=== PATIENT | female | born 1980 | race Caucasian/White ===

== ENCOUNTER 2017-07-13 18:04 | Emergency (ER) | payer OTHER, SELFPAY ==
[2017-07-13 18:04] VITALS: BP 131/75; PULSE 79; RESP 20; TEMP 36.8; O2SAT 99; BMI 31.1
[2017-07-13 18:05] VITALS: BMI 31.3
--- NOTE | 2017-07-13 18:07 | XR_ITS ---
XR chest 2V HISTORY: ITS.REASON: chest pain ORDERING PHYSICIAN: Pro Hollins MD PATIENT AGE: 37 years COMPARISON: 01/19/2017 FINDINGS: The cardiomediastinal silhouette and pulmonary vascularity are within normal limits. The lungs are clear without infiltrates, suspicious nodules, or pleural effusions. No acute bony abnormalities. IMPRESSION: Negative chest, no acute finding
[2017-07-13 18:27] LABS: Basophils % 0.4 % (0.1-2.0); Eosinophils # 0.2 K/mm3 (0.0-0.4); Eosinophils % 1.7 % (0.1-12.0); Hematocrit 39.9 % (37.0-47.0); Lymphocytes # 2.5 K/mm3 (0.7-4.5); Lymphocytes % 27.1 K/mm3 (10-50); Mean Corpuscular HGB Conc 32.7 g/dL (31.8-35.4); Mean Corpuscular Hemoglobin 29.9 pg (27.0-31.2); Mean Corpuscular Volume 91.5 fl (81-99); Mean Platelet Volume 7.8 fl (7.4-10.4); Monocytes # 0.4 K/mm3 (0.1-1.0); Monocytes % 4.6 % (1.7-9.3); Neutrophils # 6.2 K/mm3 (1.8-7.8); Neutrophils % 66.2 % (37.0-80.0); Platelet Count 283 K/mm3 (142-424); Red Blood Count 4.36 M/mm3 (4.20-5.40); Red Cell Distribution Width 12.8 % (11.5-17.5); White Blood Count 9.4 K/mm3 (4.8-10.8)
[2017-07-13 19:04] LABS: Alanine Aminotransferase 35 U/L (12-78); Albumin Level 3.7 gm/dL (3.4-5.0); Albumin/Globulin Ratio 1.1 (1.1-1.8); Alkaline Phosphatase 88 U/L (46-116); Anion Gap 9.7 mEq/L (5-15); Bilirubin,Total 0.1 mg/dL (0.2-1.0); Blood Urea Nitrogen 17 mg/dL (7-18); Calcium 9.1 mg/dL (8.5-10.1); Carbon Dioxide 31 mmol/L (21.0-32.0); Chloride 101 mmol/L (98-107); Creatine Kinase 90 U/L (26-192); Creatinine Clearance Estimated 177 mL/min (0-300); Creatinine,Serum 0.64 mg/dL (0.55-1.02); Estimated Glomerular Filt Rate 104 ml/min (>60); GFR (African American) 126 ML/MIN (>60); Globulin 3.4 gm/dl (1.3-3.2); Glucose 94 mg/dL (74-106); Sodium 138 mmol/L (136-145); Total Protein,Serum 7.1 gm/dL (6.4-8.2); Troponin I < 0.02 ng/ml (0.00-0.06)
[2017-07-13 19:05] LABS: Aspartate Amino Transferase 17 U/L (15-37); CKMB Relative Index 0.6 U/L (0-4.0); Creatine Kinase MB < 0.5 mg/ml (0.0-3.6)
[2017-07-13 19:06] LABS: Potassium 3.7 mmoL/L (3.5-5.1)
[2017-07-13 20:17] VITALS: BP 107/66; PULSE 91; RESP 18; TEMP 36.6; O2SAT 97
== END 2017-07-13 20:20 | disposition left against medical advice (07) ==
PROVIDERS: Emergency Provider Emergency Medicine
DX: R07.9 Chest pain, unspecified (principal); I10 Essential (primary) hypertension; R06.09 Other forms of dyspnea
CPT/HCPCS: 71046; 80053; 82550; 82553; 84484; 85025; 93005; 93041; 99283

== ENCOUNTER → 2017-08-16 12:49 | Outpatient (CLI) | payer OTHER, SELFPAY ==
[2017-08-16 13:19] LABS: Basophils % 0.3 % (0.1-2.0); Eosinophils # 0.1 K/mm3 (0.0-0.4); Eosinophils % 0.7 % (0.1-12.0); Hematocrit 40.6 % (37.0-47.0); Hemoglobin 13.2 g/dL (12.2-16.2); Lymphocytes # 2.2 K/mm3 (0.7-4.5); Lymphocytes % 20.3 K/mm3 (10-50); Mean Corpuscular HGB Conc 32.4 g/dL (31.8-35.4); Mean Corpuscular Hemoglobin 29.6 pg (27.0-31.2); Mean Corpuscular Volume 91.4 fl (81-99); Mean Platelet Volume 7.7 fl (7.4-10.4); Monocytes # 0.4 K/mm3 (0.1-1.0); Monocytes % 3.6 % (1.7-9.3); Neutrophils # 8.1 K/mm3 (1.8-7.8); Neutrophils % 75.2 % (37.0-80.0); Platelet Count 267 K/mm3 (142-424); Red Blood Count 4.44 M/mm3 (4.20-5.40); Red Cell Distribution Width 12.7 % (11.5-17.5); White Blood Count 10.7 K/mm3 (4.8-10.8)
[2017-08-16 13:48] LABS: Alanine Aminotransferase 34 U/L (12-78); Albumin/Globulin Ratio 1.1 (1.1-1.8); Alkaline Phosphatase 86 U/L (46-116); Anion Gap 11.6 mEq/L (5-15); Aspartate Amino Transferase 20 U/L (15-37); Bilirubin,Total 0.3 mg/dL (0.2-1.0); Blood Urea Nitrogen 15 mg/dL (7-18); Calcium 8.9 mg/dL (8.5-10.1); Carbon Dioxide 26 mmol/L (21.0-32.0); Chloride 103 mmol/L (98-107); Creatinine,Serum 0.55 mg/dL (0.55-1.02); Estimated Glomerular Filt Rate 124 ml/min (>60); Free T4 (Free Thyroxine) 1.12 ng/dl (0.76-1.46); GFR (African American) 150 ML/MIN (>60); Globulin 3.5 gm/dl (1.3-3.2); Glucose 95 mg/dL (74-106); Potassium 3.6 mmoL/L (3.5-5.1); Sodium 137 mmol/L (136-145); Thyroid Stimulating Hormone 1.96 uIU/ml (0.358-3.740); Total Protein,Serum 7.5 gm/dL (6.4-8.2)
[2017-08-16 14:18] LABS: Hemoglobin A1C 5.6 % (0.0-7.0)
[2017-08-20 23:26] LABS: 1,25-Dihydroxy, Vitamin D-2 50 pg/mL (.)
[2017-08-23 15:36] LABS: 1,25 Dihydroxy Vitamin D 58 pg/mL (.); 1,25-Dihydroxy, Vitamin D-3 <10 pg/mL (.)
== END ==
PROVIDERS: Nurse Practitioner Family; Visit Provider Emergency Medicine
DX: R53.83 Other fatigue (principal)
CPT/HCPCS: 36415; 80053; 82652; 83036; 84439; 84443; 85025

== ENCOUNTER → 2017-09-02 13:44 | Outpatient (CLI) | payer OTHER, SELFPAY | PROVIDERS: Visit Provider Nurse Practitioner Family | DX: R52 Pain, unspecified (principal); R10.9 Unspecified abdominal pain | CPT/HCPCS: 87086 ==

== ENCOUNTER → 2017-09-05 10:53 | Outpatient (REF) | payer OTHER, SELFPAY | LOC: LAB 10:53 | PROVIDERS: Visit Provider Nurse Practitioner Family | DX: M54.9 Dorsalgia, unspecified (principal) | CPT/HCPCS: 87086 ==

== ENCOUNTER → 2017-09-22 10:30 | Outpatient (CLI) | payer OTHER, SELFPAY ==
--- NOTE | 2017-09-22 10:32 | CT_ITS ---
CT abdomen pelvis wo con CLINICAL INDICATION: Bilateral flank pain right greater than left ITS.REASON: pain ORDERING PHYSICIAN: Moriah Graham PATIENT AGE: 37 years COMPARISON: 06/25/2016 TECHNIQUE: Axial images obtained with sagittal and coronal reformats. All CT scans at the facility use one or more dose reduction, viz: automated exposure control; ma/kV adjustment per patient size (including targeted exams where dose is matched to indication; i.e. head); or iterative reconstruction technique. PROCEDURE: Oral Contrast: None IV Contrast: None . FINDINGS: Lung bases are clear. The liver, gallbladder, spleen, adrenal glands, pancreas, and stomach have an unremarkable unenhanced CT appearance. There is a tiny hyperdensity along the cortex of the right kidney posteriorly at 3 mm and may represent a small hyperdense cyst. A 2 mm cortical medullary calcification is present in the lower pole the left kidney. No obstructing renal or ureteral calculi. No hydronephrosis. There is history given of prior appendectomy. No intestinal obstruction, free air, or diverticulitis. Scattered small nodes in the mesentery's nonspecific. No pelvic mass abnormal fluid collection or focal inflammatory change. No acute bony anomalies. IMPRESSION: 1. No acute finding. No obstructing renal or ureteral calculi. 2. Nonspecific 3 mm cortical hyperdensity of the right kidney posteriorly and 2 mm cortical medullary hyperdensity of the left kidney inferiorly not significant changed
[2017-09-23 08:29] LABS: Vitamin B12 518 pg/mL (232-1245)
[2017-09-23 10:19] LABS: Ceruloplasmin 35.6 mg/dL (19.0-39.0); Folate 17.5 ng/mL (>3.0)
== END ==
PROVIDERS: Specialist; PCP Nurse Practitioner Family; Visit Provider Nurse Practitioner Family
DX: G24.5 Blepharospasm (principal); G25.9 Extrapyramidal and movement disorder, unspecified
CPT/HCPCS: 36415; 74176; 82390; 82607; 82746

== ENCOUNTER → 2017-10-01 10:04 | Outpatient (CLI) | payer OTHER, SELFPAY ==
[2017-10-01 10:35] LABS: Collection Time,Urine 24 hours; Total Volume,Urine 1850 mL (600-1600)
[2017-10-01 10:43] LABS: Creatinine 24 Hour,Urine 1517 mg/24hr (630-2500); Creatinine,Urine Random 82 mg/dL (20-320)
== END ==
PROVIDERS: Visit Provider Nurse Practitioner Family
DX: R10.9 Unspecified abdominal pain (principal)
CPT/HCPCS: 82570

== ENCOUNTER → 2017-12-19 10:41 | Outpatient (REF) | payer OTHER, SELFPAY ==
[2017-12-19 18:25] LABS: Hemoglobin A1C 5.7 % (0.0-7.0)
[2017-12-19 18:37] LABS: Basophils % 0.4 % (0.1-2.0); Eosinophils # 0.1 K/mm3 (0.0-0.4); Eosinophils % 0.8 % (0.1-12.0); Hematocrit 47.3 % (37.0-47.0); Hemoglobin 14.9 g/dL (12.2-16.2); Lymphocytes # 1.8 K/mm3 (0.7-4.5); Lymphocytes % 24.5 K/mm3 (10-50); Mean Corpuscular HGB Conc 31.5 g/dL (31.8-35.4); Mean Corpuscular Hemoglobin 29.7 pg (27.0-31.2); Mean Corpuscular Volume 94.2 fl (81-99); Mean Platelet Volume 8.6 fl (7.4-10.4); Monocytes # 0.4 K/mm3 (0.1-1.0); Neutrophils # 5.1 K/mm3 (1.8-7.8); Neutrophils % 69.3 % (37.0-80.0); Platelet Count 306 K/mm3 (142-424); Red Blood Count 5.03 M/mm3 (4.20-5.40); Red Cell Distribution Width 14.1 % (11.5-17.5); White Blood Count 7.4 K/mm3 (4.8-10.8)
[2017-12-19 19:06] LABS: Alanine Aminotransferase 34 U/L (12-78); Albumin Level 4.4 gm/dL (3.4-5.0); Albumin/Globulin Ratio 1.4 (1.1-1.8); Alkaline Phosphatase 77 U/L (46-116); Anion Gap 12.3 mEq/L (5-15); Aspartate Amino Transferase 15 U/L (15-37); Bilirubin,Total 0.2 mg/dL (0.2-1.0); Blood Urea Nitrogen 14 mg/dL (7-18); Calcium 9.6 mg/dL (8.5-10.1); Carbon Dioxide 30 mmol/L (21.0-32.0); Chloride 102 mmol/L (98-107); Chol/HDL Ratio 4.5 (1-3.5); Cholesterol 236 mg/dL (140-200); Creatinine,Serum 0.63 mg/dL (0.55-1.02); Estimated Glomerular Filt Rate 106 ml/min (>60); GFR (African American) 129 ML/MIN (>60); Globulin 3.2 gm/dl (1.3-3.2); Glucose 105 mg/dL (74-106); HDL Cholesterol 52 mg/dL (29-89); LDL Cholesterol 160 mg/dL (0-130); Potassium 4.3 mmoL/L (3.5-5.1); Sodium 140 mmol/L (136-145); Thyroid Stimulating Hormone 1.99 uIU/ml (0.358-3.740); Total Protein,Serum 7.6 gm/dL (6.4-8.2); Triglycerides 122 mg/dL (30-200); VLDL Cholesterol 24 mg/dL (0-40)
[2017-12-21 17:12] LABS: Vitamin D 25 Hydroxy 22.7 ng/mL (30.0-100.0)
== END ==
LOC: LAB 10:41
PROVIDERS: Visit Provider Nurse Practitioner Family
DX: I10 Essential (primary) hypertension (principal)
CPT/HCPCS: 80053; 80061; 82652; 83036; 84436; 84443; 85025

== ENCOUNTER → 2018-02-07 15:15 | Outpatient (CLI) | payer OTHER, SELFPAY ==
--- NOTE | 2018-02-07 15:19 | NVE_ITS ---
Venous Exam Indications: 729.5 Pain in limb. IMPRESSIONS No evidence of deep or superficial vein thrombosis involving the veins of the left upper extremity Left upper extremity venous duplex. Doppler flow study including spectral analysis, color and serra scale imaging. Patient status: Outpatient. Tables: Venous flow and imaging: + + + Location Flow properties + + + Left internal jugular Normal phasicity; spontaneous; compressible + + + Left subclavian Normal phasicity; spontaneous; normal augmentation; compressible + + + Left axillary Normal phasicity; spontaneous; normal augmentation; compressible + + + Left brachial Normal phasicity; spontaneous; normal augmentation; compressible + + + Left cephalic Normal phasicity; spontaneous; normal augmentation; compressible + + + Left basilic Normal phasicity ; spontaneous; normal augmentation; compressible + + + Left radial Compressible + + + Left ulnar Compressible + + + (Report amended ) Electronically signed by: Jaylen Cook [id number]
== END ==
PROVIDERS: PCP Physician Assistant; Visit Provider Physician Assistant
DX: M79.602 Pain in left arm (principal)
CPT/HCPCS: 93971

== ENCOUNTER → 2019-01-04 14:11 | Outpatient (CLI) | payer OTHER, SELFPAY ==
[2019-01-04 14:37] LABS: Basophils % 0.3 % (0.1-2.0); Eosinophils # 0.1 K/mm3 (0.0-0.4); Eosinophils % 0.9 % (0.1-12.0); Lymphocytes # 1.7 K/mm3 (0.7-4.5); Lymphocytes % 28.4 % (10-50); Mean Corpuscular Hemoglobin 30.1 pg (27.0-31.2); Mean Corpuscular Volume 94.1 fl (81-99); Mean Platelet Volume 8.2 fl (7.4-10.4); Monocytes # 0.3 K/mm3 (0.1-1.0); Monocytes % 4.7 % (1.7-9.3); Neutrophils % 65.9 % (37.0-80.0); Platelet Count 245 K/mm3 (142-424); Red Blood Count 4.99 M/mm3 (4.20-5.40); White Blood Count 6.1 K/mm3 (4.8-10.8)
[2019-01-04 15:09] LABS: Alanine Aminotransferase 26 U/L (12-78); Albumin Level 3.9 gm/dL (3.4-5.0); Albumin/Globulin Ratio 1.2 (1.1-1.8); Alkaline Phosphatase 72 U/L (46-116); Anion Gap 15.2 mEq/L (5-15); Aspartate Amino Transferase 12 U/L (15-37); Bilirubin,Total 0.3 mg/dL (0.2-1.0); Blood Urea Nitrogen 13 mg/dL (7-18); Calcium 8.8 mg/dL (8.5-10.1); Carbon Dioxide 25 mmol/L (21.0-32.0); Chloride 102 mmol/L (98-107); Chol/HDL Ratio 5.9 (1-3.5); Cholesterol 214 mg/dL (140-200); Creatinine,Serum 0.74 mg/dL (0.55-1.02); Estimated Glomerular Filt Rate 88 ml/min (>60); GFR (African American) 106 ML/MIN (>60); Globulin 3.2 gm/dl (1.3-3.2); Glucose 105 mg/dL (74-106); HDL Cholesterol 36 mg/dL (29-89); LDL Cholesterol 124 mg/dL (0-130); Potassium 4.2 mmoL/L (3.5-5.1); Sodium 138 mmol/L (136-145); T4 (Thyroxine) 10.1 ug/dl (4.7-13.3); Thyroid Stimulating Hormone 2.25 uIU/ml (0.358-3.740); Total Protein,Serum 7.1 gm/dL (6.4-8.2); Triglycerides 272 mg/dL (30-200); VLDL Cholesterol 54 mg/dL (0-40)
[2019-01-07 16:29] LABS: Vitamin D 25 Hydroxy 23.6 ng/mL (30.0-100.0)
== END ==
PROVIDERS: Visit Provider Nurse Practitioner Family
DX: Z00.00 Encounter for general adult medical examination without abnormal findings (principal); Z87.891 Personal history of nicotine dependence; E55.9 Vitamin D deficiency, unspecified
CPT/HCPCS: 80053; 80061; 82652; 84436; 84443; 85025

== ENCOUNTER 2019-09-04 18:21 | Emergency (ER) | payer OTHER, SELFPAY ==
[2019-09-04 18:22] VITALS: BP 133/87; PULSE 104; RESP 20; TEMP 36.9; O2SAT 100; BMI 28.8
--- NOTE | 2019-09-04 18:40 | XR_ITS ---
PROCEDURE: XR CHEST 2V CLINICAL HISTORY: SOA Shortness of air, smoker COMPARISON: CXR CHEST(2 VIEWS-NOT PORTABLE) from 01/13/2017 CXR CHEST(2 VIEWS-NOT PORTABLE) from 01/19/2017 CXR2V XR chest 2V from 07/13/2017 FINDINGS: The cardiomediastinal silhouette and pulmonary vascularity are within normal limits. The lungs are clear without infiltrates, suspicious nodules, or pleural effusions. No acute bony abnormalities. IMPRESSION: No acute findings. Dictated by: Jaylen Cook MD 09/05/2019 17:52 Electronically signed by Jaylen Cook MD in [facility] 09/05/2019 17:52
[2019-09-04 18:48] LABS: Chloride 103 mmol/L (98-107); Sodium 138 mmol/L (136-145)
[2019-09-04 18:49] LABS: Potassium 3.7 mmoL/L (3.5-5.1)
[2019-09-04 18:51] LABS: Alanine Aminotransferase 17 U/L (12-78); Albumin/Globulin Ratio 1.6 (1.1-1.8); Alkaline Phosphatase 62 U/L (38-126); Anion Gap 12.7 mEq/L (5-15); Aspartate Amino Transferase 24 U/L (14-36); Bilirubin,Total 0.4 mg/dl (0.2-1.3); Blood Urea Nitrogen 11 mg/dl (7-17); Carbon Dioxide 26 mmol/L (22.0-30.0); Creatinine Clearance Estimated 147 mL/min (50-200); Estimated Glomerular Filt Rate 93 ml/min (>60); GFR (African American) 113 ML/MIN (>60); Globulin 3.1 g/dL (1.3-3.2); Total Protein,Serum 8.1 g/dl (6.3-8.2)
[2019-09-04 18:52] LABS: Calcium 9.7 mg/dl (8.4-10.2); Glucose 97 mg/dl (74-100)
[2019-09-04 18:53] LABS: Basophils % 0.5 % (0.1-2.0); Eosinophils # 0.1 K/mm3 (0.0-0.4); Eosinophils % 0.7 % (0.1-12.0); Hematocrit 45.7 % (37.0-47.0); Hemoglobin 14.8 g/dL (12.2-16.2); Lactic Acid 0.9 mmol/L (0.7-2.1); Lymphocytes # 2.3 K/mm3 (0.7-4.5); Lymphocytes % 28.2 % (10-50); Mean Corpuscular HGB Conc 32.4 g/dL (31.8-35.4); Mean Corpuscular Hemoglobin 30.1 pg (27.0-31.2); Mean Corpuscular Volume 92.9 fl (81-99); Mean Platelet Volume 7.7 fl (7.4-10.4); Monocytes # 0.3 K/mm3 (0.1-1.0); Monocytes % 4.2 % (1.7-9.3); Neutrophils # 5.4 K/mm3 (1.8-7.8); Neutrophils % 66.4 % (37.0-80.0); Platelet Count 269 K/mm3 (142-424); Red Blood Count 4.92 M/mm3 (4.20-5.40); Red Cell Distribution Width 12.7 % (11.5-17.5); White Blood Count 8.1 K/mm3 (4.8-10.8)
[2019-09-04 19:01] LABS: Microscopic, Urine URINE MICROSCOPIC (MICROSCOPIC)
[2019-09-04 19:02] LABS: Appearance,Urine CLEAR (Clear); Bilirubin,Urine Negative (Negative); Blood, Urine 1+ (Negative); Color,Urine YELLOW (Yellow); Glucose,Urine (UA) Negative (Negative); Ketones,Urine 1+ (Negative); Leukocyte Esterase,Urine TRACE (Negative); Nitrate,Urine Negative (Negative); Protein,Urine Negative (Negative); Urobilinogen,Urine 0.2 EU/dl (0.2)
[2019-09-04 19:08] LABS: Strep Scrn Group A (Rapid) Negative (Negative)
--- NOTE | 2019-09-04 19:15 | HMH.EDGENADL ---
ED Disposition Condition on Discharge: Good - Critical Care Critical Care Time: No <FestusteddyPro - Last Filed: 09/04/19 20:27> <Chai Hurst - Last Filed: 09/04/19 20:40> Clinical Impression: Chest pain, precordial, Shortness of breath, Anxiety Disposition: Home, Self-Care Instructions: DI for Shortness of Breath Additional Instructions: call pcp in am Referrals: Provider,Referral, MD [Primary Care Provider] - Attestation: On 09/04/19, the high probability of a clinically significant, sudden or life threatening deterioration of the following system(s) required my full and direct attention, intervention and personal management. The time I documented below is in addition to time spent performing reported procedures but includes the following listed in this critical care notation. Medical Decision Making - Shayne Inquiry Pt receiving controlled substance: No - Lab Data Result diagrams: 09/04/19 18:25 09/04/19 18:25 <GunjanPro - Last Filed: 09/04/19 20:27> - Lab Data Result diagrams: 09/04/19 18:25 09/04/19 18:25 <Chai Hurst - Last Filed: 09/04/19 20:40> Vital Signs: 09/04/19 18:22 Temperature 98.4 F Temperature Source Oral Pulse Rate [Right Radial] 104 H Respiratory Rate 20 Blood Pressure [Right Arm] 133/87 Blood Pressure Mean [Right Arm] 102 Blood Pressure Source [Right Arm] Automatic Cuff Blood Pressure Position [Right Arm] Sitting 02 Sat by Pulse Oximetry 100 Oxygen Delivery Method Room Air - Lab Data Lab Results 09/04/19 18:25: Lactate 0.9 09/04/19 18:25: WBC 8.1, RBC 4.92, Hgb 14.8, Hct 45.7, MCV 92.9, MCH 30.1, MCHC 32.4, RDW 12.7, Plt Count 269, MPV 7.7, Neut % (Auto) 66.4, Lymph % (Auto) 28.2, Burt % (Auto) 4.2, Eos % (Auto) 0.7, Baso % (Auto) 0.5, Neut # (Auto) 5.4, Lymph # (Auto) 2.3, Burt # (Auto) 0.3, Eos # (Auto) 0.1, Baso # (Auto) 0.0 09/04/19 18:25: Sodium 138, Potassium 3.7, Chloride 103, Carbon Dioxide 26, Anion Gap 12.7, BUN 11, Creatinine 0.70, Estimated Creat Clear 147, Estimated GFR 93, Est GFR ( Amer) 113, Glucose 97, Calcium 9.7, Total Bilirubin 0.4, AST 24, ALT 17, Alkaline Phosphatase 62, Total Protein 8.1, Albumin 5.0, Globulin 3.1, Albumin/Globulin Ratio 1.6 09/04/19 18:25: Influenza Type A Ag Negative, Influenza Type B Ag Negative 09/04/19 18:25: Group A Strep Rapid Negative 09/04/19 18:25: D-Dimer < 100 09/04/19 18:25: Troponin I < 0.01 09/04/19 18:55: Urine Color Yellow, Urine Appearance Clear, Urine pH 7.0, Ur Specific [place] 1.010, Urine Protein Negative, Urine Glucose (UA) Negative, Urine Ketones 1+, Urine Blood 1+, Urine Nitrate Negative, Urine Bilirubin Negative, Urine Urobilinogen 0.2, Ur Leukocyte Esterase Trace, Urine WBC Occasional, Ur Squamous Epith Cells Occasional, Urine Bacteria Trace Orders (Tests/Meds): ED MEDICATIONS Generic Name Dose Route Start Last Admin Trade Name Fregarland PRN Reason Stop Dose Admin Sodium Chloride 10 ml 09/04/19 20:30 Sodium Chloride 0.9% 10ml Vial IV 10/04/19 20:29 NEEDED PRN to Dilute Lorazepam inj Discontinued Medications Generic Name Dose Route Start Last Admin Trade Name Jesika PRN Reason Stop Dose Admin Ketorolac Tromethamine 30 mg 09/04/19 20:30 09/04/19 20:31 Toradol 30mg/Ml Vial IV 09/04/19 20:31 30 mg ONCE ONE Administration Lorazepam 1 mg 09/04/19 20:30 09/04/19 20:31 Ativan 2mg/Ml Vial IV 09/04/19 20:31 1 mg ONCE ONE Administration Methylprednisolone Sodium Succinate 125 mg 09/04/19 20:30 09/04/19 20:31 Solu-Medrol 125mg/2ml Vial IV 09/04/19 20:31 125 mg ONCE ONE Administration ORDERS Category Date Time Status XR chest 2V Stat Exams 09/04/19 18:40 Taken Troponin I Q3H Lab 09/04/19 22:30 Ordered Troponin I Q3H Lab 09/05/19 01:30 Ordered Blood Culture Stat Micro 09/04/19 18:25 Received Strep Screen Confirmation Stat Micro 09/04/19 18:25 Received - ECG Data Tracing #1 EKG interpreted by
[2019-09-04 19:36] LABS: Bacteria,Urine Trace /lpf; Squamous Epithelial Cell,Urine Occasional #/hpf (0-5); WBC,Urine Occasional #/hpf (0-3)
--- NOTE | 2019-09-04 19:41 | ECG_ITS ---
APPROVED REPORT Exam: Resting ECG HR:88 bpm ECG Measurements Heart Rate 88 AXES WI 136 P 27 QRSd 78 QRS 14 QT 360 T 0 QTc 435 <Conclusion> Normal sinus rhythm Moderate voltage criteria for LVH, may be normal variant Borderline ECG Electronically signed by : Galo Nunez, 09/07/2019 08:07:53
--- NOTE | 2019-09-04 19:50 | PC.NURSE ---
EKG obtained per MD order. No needs voiced at this time.
[2019-09-04 20:05] LABS: Troponin I < 0.01 ng/ml (0.00-0.034)
[2019-09-04 20:24] LABS: D-Dimer < 100 ng/mL (0-400)
[2019-09-04 20:47] VITALS: BP 140/72; PULSE 81; RESP 19; TEMP 36.7; O2SAT 98
== END 2019-09-04 21:34 | disposition home or self-care (01) ==
PROVIDERS: Emergency Provider Emergency Medicine; PCP Emergency Medicine
DX: R07.9 Chest pain, unspecified (principal); F41.9 Anxiety disorder, unspecified; F17.210 Nicotine dependence, cigarettes, uncomplicated; Z88.1 Allergy status to other antibiotic agents
CPT/HCPCS: 71046; 80053; 81001; 83605; 84484; 85025; 85378; 87040; 87275; 87276; 87430; 93005; 96374; 96375; 99284

== ENCOUNTER 2019-11-11 20:26 | Emergency (ER) | payer OTHER, SELFPAY ==
[2019-11-11 20:41] VITALS: BP 134/90; PULSE 111; RESP 17; TEMP 36.9; O2SAT 100; BMI 24.6
--- NOTE | 2019-11-11 20:41 | PC.NURSE ---
lead housekeeper at the bedside starting av IV
--- NOTE | 2019-11-11 20:47 | CT_ITS ---
PROCEDURE: CT HEAD/BRAIN WO CON CLINICAL INDICATION: left side altered sensation COMPARISON: HDWO CT HEAD W/O CONTRAST from 09/03/2016 TECHNIQUE: Axial images obtained. All CT scans at the facility use one or more dose reduction, viz: automated exposure control, ma/kV adjustment per patient size (including targeted exams where dose is matched to indication, i.e. head), or iterative reconstruction technique. FINDINGS: No midline shift, mass effect, intracranial hemorrhage, hydrocephalus, or extra-axial fluid collection is evident. The calvarium has an unremarkable appearance. No mastoid effusion. No sinus air-fluid level. IMPRESSION: No acute intracranial finding Dictated by: Dr. Dipesh Gutierrez MD 11/12/2019 07:[address] Dipesh Gutierrez MD in [place] 11/12/2019 07:24
--- NOTE | 2019-11-11 20:47 | XR_ITS ---
PROCEDURE: XR CHEST 2V CLINICAL HISTORY: left arm pain, r/o mi COMPARISON: CXR CHEST(2 VIEWS-NOT PORTABLE) from 01/19/2017 CXR2V XR chest 2V from 07/13/2017 XR CHEST 2V from 09/04/2019 FINDINGS: The cardiomediastinal silhouette and pulmonary vascularity are within normal limits. The lungs are clear without infiltrates, suspicious nodules, or pleural effusions. No acute bony abnormalities. IMPRESSION: No acute findings. Dictated by: Dr. Dipesh Gutierrez MD 11/12/2019 07:[address] Dipesh Gutierrez MD in [facility] 11/12/2019 07:27
--- NOTE | 2019-11-11 20:47 | ECG_ITS ---
APPROVED REPORT Exam: Resting ECG HR:88 bpm ECG Measurements Heart Rate 88 AXES [place] 144 P 56 QRSd 82 QRS 50 QT 376 T 27 QTc 454 <Conclusion> Normal sinus rhythm Nonspecific ST and T wave abnormality Abnormal ECG Electronically signed by : Galo Nunez, 11/12/2019 17:27:35
--- NOTE | 2019-11-11 20:57 | HMH.EDCP ---
ED Disposition Clinical Impression: Atypical chest pain Disposition: Home, Self-Care Condition on Discharge: Good Instructions: DI for Atypical Chest Pain Additional Instructions: see pcp in am Referrals: Provider,Referral, [Primary Care Provider] - - Critical Care Critical Care Time: No Attestation: On 11/11/19, the high probability of a clinically significant, sudden or life threatening deterioration of the following system(s) required my full and direct attention, intervention and personal management. The time I documented below is in addition to time spent performing reported procedures but includes the following listed in this critical care notation. Medical Decision Making - Medical Records Medical records reviewed: Yes: I reviewed the patient's medical records. - Shayne Inquiry Pt receiving controlled substance: No Vital Signs: 11/11/19 20:41 11/11/19 21:05 11/11/19 23:00 Temperature 98.5 F Temperature Source Oral Pulse Rate Pulse Rate [Right Brachial] 111 H 94 H 100 H Respiratory Rate 17 18 20 Blood Pressure Blood Pressure [Right Arm] 134/90 148/89 H 112/73 Blood Pressure Mean [Right Arm] 104 108 86 Blood Pressure Source Blood Pressure Source [Right Arm] Automatic Cuff Automatic Cuff Blood Pressure Position Blood Pressure Position [Right Arm] Sitting Supine 02 Sat by Pulse Oximetry 100 100 100 Oxygen Delivery Method Room Air Room Air Room Air 11/11/19 23:31 11/11/19 23:33 Temperature 98.0 F Temperature Source Oral Pulse Rate 107 H Pulse Rate [Right Brachial] 108 H Respiratory Rate 18 18 Blood Pressure 120/90 Blood Pressure [Right Arm] 120/90 Blood Pressure Mean [Right Arm] 100 Blood Pressure Source Automatic Cuff Blood Pressure Source [Right Arm] Blood Pressure Position Standing Blood Pressure Position [Right Arm] 02 Sat by Pulse Oximetry 99 Oxygen Delivery Method Room Air Room Air - Lab Data Lab results reviewed: Yes: I reviewed the patient's lab results. Lab Results 11/11/19 20:50: WBC 6.9, RBC 4.92, Hgb 15.2, Hct 45.0, MCV 91.4, MCH 31.0, MCHC 33.8, RDW 12.9, Plt Count 238, MPV 8.1, Neut % (Auto) 55.5, Lymph % (Auto) 37.6, [place] % (Auto) 4.5, Eos % (Auto) 1.7, Baso % (Auto) 0.6, Neut # (Auto) 3.8, Lymph # (Auto) 2.6, [place] # (Auto) 0.3, Eos # (Auto) 0.1, Baso # (Auto) 0.0 11/11/19 20:50: D-Dimer < 100 11/11/19 20:50: Sodium 139, Potassium 3.0 L, Chloride 102, Carbon Dioxide 29, Anion Gap 11.0, BUN 16, Creatinine 0.80, Estimated Creat Clear 110, Estimated GFR 80, Est GFR ( Amer) 97, Glucose 106 H, Calcium 9.4, Total Bilirubin 0.3, Direct Bilirubin 0.3, Conjugated Bilirubin 0.0, Indirect Bilirubin 0.0, Unconjugated Bilirubin 0.0, AST 31, ALT 27, Alkaline Phosphatase 71, Troponin I < 0.01, NT-Pro-B Natriuret Pep 61.6, Total Protein 7.3, Albumin 4.6 11/11/19 20:50: TSH 2.32, Free T4 Index 4.0 L, Thyroxine (T4) 12.2 H, T3 Uptake 33 11/11/19 20:50: Serum HCG, Qual Negative Result diagrams: 11/11/19 20:50 11/11/19 20:50 Orders (Tests/Meds): ORDERS Category Date Time Status CT head/brain wo con Stat Cat Scan 11/11/19 20:47 Taken XR chest 2V Stat Exams 11/11/19 20:47 Taken Troponin I Q3H Lab 11/12/19 02:48 Ordered Urinalysis and Microscopic Stat Lab 11/11/19 20:49 Ordered - Radiology Data #1 Image(s): Chest Image Reviewed: Yes I reviewed the patient's radiology image Preliminary Findings: Normal/NAD - CT Data CT Scan: Head Time Received: 23:56 Preliminary Findings: Normal/NAD - ECG Data Tracing #1 Normal Sinus Rhythm: Yes Ischemic changes: non-specific ST-T wave changes Chest Pain HPI - General Chief Complaint: Chest Pain Stated Complaint: Left arm pain, not able to sleep Time Seen by Provider: 11/11/19 20:57 Mode of Arrival: Family Vehicle Source of Information: Patient, Medical Record Limitations: No Limitations Description of Symptoms (Recalled from ER Triage Doc. by RN): pt with current anxiety p
[2019-11-11 21:05] VITALS: BP 148/89; PULSE 94; RESP 18; O2SAT 100
[2019-11-11 21:07] LABS: Basophils % 0.6 % (0.1-2.0); Eosinophils # 0.1 K/mm3 (0.0-0.4); Eosinophils % 1.7 % (0.1-12.0); Hemoglobin 15.2 g/dL (12.2-16.2); Lymphocytes # 2.6 K/mm3 (0.7-4.5); Lymphocytes % 37.6 % (10-50); Mean Corpuscular HGB Conc 33.8 g/dL (31.8-35.4); Mean Corpuscular Volume 91.4 fl (81-99); Mean Platelet Volume 8.1 fl (7.4-10.4); Monocytes # 0.3 K/mm3 (0.1-1.0); Monocytes % 4.5 % (1.7-9.3); Neutrophils # 3.8 K/mm3 (1.8-7.8); Neutrophils % 55.5 % (37.0-80.0); Platelet Count 238 K/mm3 (142-424); Red Blood Count 4.92 M/mm3 (4.20-5.40); Red Cell Distribution Width 12.9 % (11.5-17.5); White Blood Count 6.9 K/mm3 (4.8-10.8)
[2019-11-11 21:08] LABS: Chloride 102 mmol/L (98-107); Sodium 139 mmol/L (136-145)
[2019-11-11 21:10] LABS: Blood Urea Nitrogen 16 mg/dl (7-17); Creatinine Clearance Estimated 110 mL/min (50-200); Estimated Glomerular Filt Rate 80 ml/min (>60); GFR (African American) 97 ML/MIN (>60)
[2019-11-11 21:11] LABS: Alanine Aminotransferase 27 U/L (12-78); Albumin Level 4.6 g/dl (3.5-5.0); Alkaline Phosphatase 71 U/L (38-126); Aspartate Amino Transferase 31 U/L (14-36); Bilirubin,Direct 0.3 mg/dl (0.0-0.4); Bilirubin,Total 0.3 mg/dl (0.2-1.3); Calcium 9.4 mg/dl (8.4-10.2); Carbon Dioxide 29 mmol/L (22.0-30.0); Glucose 106 mg/dl (74-100); Total Protein,Serum 7.3 g/dl (6.3-8.2)
[2019-11-11 21:20] LABS: HCG Qualitative, Serum Negative (Negative); NT Pro Brain Natriuretic Pep. 61.6 pg/mL (0-125)
[2019-11-11 21:23] LABS: D-Dimer < 100 ng/mL (0-400)
[2019-11-11 21:29] LABS: Triiodothryronine (T3) Uptake 33 % (23.5-40.5)
[2019-11-11 21:30] LABS: T4 (Thyroxine) 12.2 ug/dl (5.53-11.0); Troponin I < 0.01 ng/ml (0.00-0.034)
[2019-11-11 21:44] LABS: Thyroid Stimulating Hormone 2.32 uIU/mL (0.465-4.68)
[2019-11-11 23:00] VITALS: BP 112/73; PULSE 100; RESP 20; O2SAT 100
[2019-11-11 23:31] VITALS: BP 120/90; PULSE 107; RESP 18; TEMP 36.7; O2SAT 99
[2019-11-11 23:33] VITALS: BP 120/90; PULSE 108; RESP 18; O2SAT 99
== END 2019-11-12 00:06 | disposition home or self-care (01) ==
PROVIDERS: Emergency Provider Emergency Medicine
DX: R07.89 Other chest pain (principal); K21.9 Gastro-esophageal reflux disease without esophagitis; E78.5 Hyperlipidemia, unspecified; I10 Essential (primary) hypertension; F41.9 Anxiety disorder, unspecified; G43.709 Chronic migraine without aura, not intractable, without status migrainosus; Z87.442 Personal history of urinary calculi; Z90.49 Acquired absence of other specified parts of digestive tract; F17.210 Nicotine dependence, cigarettes, uncomplicated; Z79.899 Other long term (current) drug therapy
CPT/HCPCS: 70450; 71046; 80048; 80076; 83880; 84436; 84443; 84479; 84484; 84703; 85025; 85378; 93005; 99283; 99284

== ENCOUNTER → 2019-11-21 17:39 | Outpatient (CLI) | payer OTHER, SELFPAY ==
[2019-11-23 12:41] LABS: Vitamin B12 937 pg/mL (232-1245)
[2019-11-27 16:29] LABS: 1,25 Dihydroxy Vitamin D 68 pg/mL (.); 1,25-Dihydroxy, Vitamin D-2 41 pg/mL (.); 1,25-Dihydroxy, Vitamin D-3 27 pg/mL (.)
[2019-12-05 11:15] LABS: APTT 26.3 sec (.); Prothrombin Time 11.2 sec (.)
[2019-12-05 11:16] LABS: Anti-Cardiolipin Antibody IgG <10 GPL (.); Anti-Cardiolipin Antibody IgM 12 MPL (.); Beta-2 Glycoprotein I Ab, IgA <10 SAU (.); Beta-2 Glycoprotein I Ab, IgG <10 SGU (.); Beta-2 Glycoprotein I Ab, IgM <10 SMU (.); Hexagonal Phase Phospholipid 0 sec (.)
== END ==
PROVIDERS: Visit Provider Nurse Practitioner Family
DX: R20.0 Anesthesia of skin (principal); E67.3 Hypervitaminosis D
CPT/HCPCS: 36415; 82607; 82652; 85597; 85598; 85610; 85613; 85670; 85730; 86146; 86147

== ENCOUNTER → 2020-03-27 18:37 | Outpatient (CLI) | payer OTHER, SELFPAY ==
[2020-03-27 19:01] LABS: Alanine Aminotransferase 23 U/L (12-78); Albumin Level 4.9 g/dl (3.5-5.0); Albumin/Globulin Ratio 1.6 (1.1-1.8); Alkaline Phosphatase 80 U/L (38-126); Anion Gap 15.2 mEq/L (5-15); Aspartate Amino Transferase 26 U/L (14-36); Bilirubin,Total 0.5 mg/dl (0.2-1.3); Blood Urea Nitrogen 16 mg/dl (7-17); Calcium 10.4 mg/dl (8.4-10.2); Carbon Dioxide 29 mmol/L (22.0-30.0); Chloride 101 mmol/L (98-107); Cholesterol 253 mg/dl (140-200); Estimated Glomerular Filt Rate 93 ml/min (>60); GFR (African American) 113 ML/MIN (>60); Glucose 92 mg/dl (74-100); HDL Cholesterol 64 mg/dl (40-60); Potassium 4.2 mmoL/L (3.5-5.1); Sodium 141 mmol/L (136-145); Total Protein,Serum 7.9 g/dl (6.3-8.2); Triglycerides 124 mg/dl (30-150); VLDL Cholesterol 25 mg/dL (0-40)
[2020-03-27 19:09] LABS: Basophils % 0.6 % (0.1-2.0); Eosinophils # 0.1 K/mm3 (0.0-0.4); Eosinophils % 1.2 % (0.1-12.0); Hemoglobin 16.5 g/dL (12.2-16.2); Lymphocytes # 1.9 K/mm3 (0.7-4.5); Lymphocytes % 27.9 % (10-50); Mean Corpuscular HGB Conc 31.7 g/dL (31.8-35.4); Mean Corpuscular Volume 97.6 fl (81-99); Mean Platelet Volume 9.4 fl (7.4-10.4); Monocytes # 0.3 K/mm3 (0.1-1.0); Monocytes % 4.1 % (1.7-9.3); Neutrophils # 4.5 K/mm3 (1.8-7.8); Neutrophils % 66.2 % (37.0-80.0); Platelet Count 347 K/mm3 (142-424); Red Blood Count 5.33 M/mm3 (4.20-5.40); White Blood Count 6.8 K/mm3 (4.8-10.8)
[2020-03-27 19:12] LABS: C-Reactive Protein 0.8 mg/L (0-4); Direct LDL Cholesterol 162.19 mg/dL (100-129)
[2020-03-27 19:19] LABS: T4 (Thyroxine) 12.5 ug/dl (5.53-11.0)
[2020-03-27 19:32] LABS: Thyroid Stimulating Hormone 1.18 uIU/mL (0.465-4.68)
[2020-03-27 20:53] LABS: Erythrocyte Sedimentation Rate 4 mm/hr (0-20)
== END ==
PROVIDERS: Visit Provider Physician Assistant
DX: F41.9 Anxiety disorder, unspecified (principal); R26.9 Unspecified abnormalities of gait and mobility
CPT/HCPCS: 80053; 80061; 84436; 84443; 85025; 85651; 86140

== ENCOUNTER → 2020-04-01 15:13 | Outpatient (CLI) | payer OTHER, SELFPAY ==
--- NOTE | 2020-04-01 15:13 | MR_ITS ---
PROCEDURE: MR HEAD/BRAIN WO CON CLINICAL INDICATION: gait problem, nystagmus, numbness/tingling CONCERN FOR MS, ABNORMAL GAIT, NUMBNESS IN LFET FOOT. X5 MONTHS. PRIOR CT 11-11-19 COMPARISON: CT CT HEAD/BRAIN WO CON from 11/11/2019 TECHNIQUE: Routine multiplanar multi echo sequences are performed without gadolinium enhancement. FINDINGS: No midline shift, mass effect, intracranial hemorrhage, or hydrocephalus is evident. The cerebellopontine angles, cerebellum, and brainstem have an unremarkable appearance. There is a vague oval area of increased T2 signal in the right centrum semiovale anteriorly measuring 9 x 6 mm. This does not show increased signal on the DIR 3D images as 1 would expect for a multiple sclerosis plaque. No evidence of acute infarction. The pituitary, optic chiasm, corpus callosum, and craniocervical junction have an unremarkable appearance. No mastoid effusion or sinus air-fluid level. IMPRESSION: There is a subtle 9 x 6 mm area of slight increased T2 signal in the right centrum semiovale anteriorly. This is of questionable clinical significance not showing increased signal on the 3D DIR images as 1 would expect for a multiple sclerosis plaque. Suggest the patient return for post enhanced images for further characterization. Otherwise negative. Dictated by: Jaylen Cook MD 04/02/2020 11:54 Jaylen Cook MD in [place] 04/02/2020 11:54
== END ==
PROVIDERS: PCP Physician Assistant; Visit Provider Physician Assistant
DX: R90.89 Other abnormal findings on diagnostic imaging of central nervous system (principal); R26.9 Unspecified abnormalities of gait and mobility; F41.9 Anxiety disorder, unspecified
CPT/HCPCS: 70551

== ENCOUNTER → 2020-04-04 11:07 | Outpatient (CLI) | payer OTHER, SELFPAY ==
--- NOTE | 2020-04-04 11:07 | MR_ITS ---
PROCEDURE: MR LUMBAR SPINE WO CON CLINICAL INDICATION: radiculopathy LLE (abnl EMG) lt sided lbp with incontinence x2wks. COMPARISON: CT ABDPELWO CT abdomen pelvis wo con from 09/22/2017 MR MR HEAD/BRAIN WO CON from 04/01/2020 TECHNIQUE: Standard multiplanar multiecho sequences are performed without contrast. 3-D MIP and myelographic images are also rendered and reviewed FINDINGS: There is normal alignment. The spinal cord ends at the T12-L1 level. L1-L2: Unremarkable. L2-L3: Mild facet and ligamentum hypertrophy. L3-L4: Mild bulging disc with a small left paracentral disc protrusion with facet and ligamentum hypertrophy. There is mild bilateral lateral recess narrowing left greater than right. The disc protrusion abuts the anterior medial aspect of the left L4 nerve root. L4-5: Mild facet and ligamentum hypertrophy with minimal bulging disc. L5-S1: Mild facet ligamentum hypertrophy. Mild bilateral foraminal narrowing. No extruded herniated disc or canal stenosis. IMPRESSION: There is mild multilevel lumbar spondylosis as detailed above. Please see above for detailed description at each level. There is a small left paracentral disc protrusion at L3-L4 abutting the anteromedial aspect of the left L4 nerve root. No canal stenosis or extruded herniated disc evident. Dictated by: Jaylen Cook MD 04/05/2020 08:24 Jaylen Cook MD in [place] 04/05/2020 08:24
== END ==
PROVIDERS: PCP Emergency Medicine; Visit Provider Physician Assistant
DX: M51.16 Intervertebral disc disorders with radiculopathy, lumbar region (principal); R26.9 Unspecified abnormalities of gait and mobility; F41.9 Anxiety disorder, unspecified
CPT/HCPCS: 72148; 76376

== ENCOUNTER → 2020-04-18 12:59 | Outpatient (CLI) | payer OTHER, SELFPAY ==
--- NOTE | 2020-04-18 12:59 | MR_ITS ---
PROCEDURE: MR HEAD/BRAIN WO/W CON CLINICAL INDICATION: abnormal MRI/ R/O MS ABNORMAL MR 04-01-20 CONCERN FOR MS, ABNORMAL GAIT, NUMBNESS IN LFET FOOT. X5 MONTHS. 13ML PROHANCE LOT:[id number] EXP:MAY 2022 Gait problems, nystagmus, numbness and tingling COMPARISON: MR MR HEAD/BRAIN WO CON from 04/01/2020 TECHNIQUE: Routine multiplanar multi echo sequences are performed without and with gadolinium enhancement. FINDINGS: On the previous exam there was a subtle area of slight increased T2 signal within the right centrum semiovale. This area is once again noted and is not significantly changed this does not demonstrate contrast enhancement. No restricted diffusion. No evidence of acute infarction. No midline shift or mass effect. No enhancing lesions are apparent. No mastoid effusion or sinus air-fluid level. The corpus callosum, pituitary, optic chiasm, and craniocervical junction have an unremarkable appearance. No evidence of cerebellar ectopia. The CP angles have an unremarkable appearance. IMPRESSION: Persistent small focus of slight increased T2 signal in the white matter of the right frontal lobe/centrum semiovale. This does not demonstrate contrast enhancement. This could represent a small area of subcortical heterotopic serra matter. No other significant anomalies are evident. Consider six-month follow-up to confirm stability. Dictated by: Jaylen Cook MD 04/21/2020 11:08 Jaylen Cook MD in [place] 04/21/2020 11:08
== END ==
PROVIDERS: PCP Emergency Medicine; Visit Provider Physician Assistant
DX: R90.89 Other abnormal findings on diagnostic imaging of central nervous system (principal)
CPT/HCPCS: 70553; A9576

== ENCOUNTER → 2020-06-24 16:17 | Outpatient (CLI) | payer OTHER, SELFPAY | PROVIDERS: Visit Provider Obstetrics & Gynecology | DX: Z32.00 Encounter for pregnancy test, result unknown (principal) | CPT/HCPCS: 36415; 84702 ==

== ENCOUNTER → 2020-06-26 18:11 | Outpatient (CLI) | payer OTHER, SELFPAY ==
[2020-06-26 20:45] LABS: HCG,Quantitative 114500 mIU/ml (0-5.42)
== END ==
PROVIDERS: Nurse Practitioner Family; Visit Provider Obstetrics & Gynecology
DX: Z34.90 Encounter for supervision of normal pregnancy, unspecified, unspecified trimester (principal)
CPT/HCPCS: 36415; 84702

== ENCOUNTER → 2020-06-27 14:50 | Outpatient (CLI) | payer OTHER, SELFPAY ==
[2020-06-27 14:51] LABS: Adenovirus F 40/41, stool Not Detected (NotDetected); Astrovirus Not Detected (NotDetected); Campylobacter Not Detected (NotDetected); Cryptosporidium Not Detected (NotDetected); Cyclospora Cayetanesis Not Detected (NotDetected); Entamoeba histolytica Not Detected (NotDetected); Enteroaggregative E coli Not Detected (NotDetected); Enteropathogenic E coli Not Detected (NotDetected); Enterotoxigenic E coli Not Detected (NotDetected); Giardia lamblia Not Detected (NotDetected); Norovirus Not Detected (NotDetected); Plesimonas Shigalloides, PCR Not Detected (NotDetected); Rotavirus A Not Detected (NotDetected); Salmonella, PCR Not Detected (NotDetected); Sapovirus Not Detected (NotDetected); Shiga-like toxin E coli Not Detected (NotDetected); Shigella Enterovasive E coli Not Detected (NotDetected); Vibrio Cholerae Not Detected (NotDetected); Vibrio, PCR Not Detected (NotDetected); Yersinia Entercolitica, PCR Not Detected (NotDetected)
[2020-07-02 11:17] LABS: Clostridium Difficile A/B, PCR Detected (NotDetected)
== END ==
PROVIDERS: Physician Assistant; Visit Provider Nurse Practitioner Family
DX: R14.0 Abdominal distension (gaseous) (principal); R19.5 Other fecal abnormalities; R19.7 Diarrhea, unspecified; A04.72 Enterocolitis due to Clostridium difficile, not specified as recurrent
CPT/HCPCS: 87507

== ENCOUNTER → 2020-06-28 12:41 | Outpatient (CLI) | payer OTHER, SELFPAY ==
[2020-06-28 14:39] LABS: HCG,Quantitative 135520 mIU/ml (0-5.42)
== END ==
PROVIDERS: Visit Provider Obstetrics & Gynecology
DX: Z32.00 Encounter for pregnancy test, result unknown (principal)
CPT/HCPCS: 36415; 84702

== ENCOUNTER → 2020-06-30 09:07 | Outpatient (CLI) | payer OTHER, SELFPAY ==
--- NOTE | 2020-06-30 09:08 | US_ITS ---
PROCEDURE: US OB <= 14 WEEKS FETUS CLINICAL INDICATION: US OB dates, spotting COMPARISON: No exams were available for comparison FINDINGS: An intrauterine gestational sac is present with a pole with a crown-rump length of 2.09cm correlating to gestational age of 8weeks 5days. heart tones are present with an FHR of 179bpm. Yolk sac is noted. The cervix is closed and measures 3 cm in length. The chorion and amnion have not yet fused. There is a small amount fluid of subchorionic fluid or blood present along the anterior aspect of the gestational sac. The the adnexa have an unremarkable appearance. IMPRESSION: Live IUP at 8 weeks 5 days. Estimated due date by Ultrasound is 02/04/2021 Small amount of subchorionic fluid/blood along the anterior and inferior aspect of the gestational sac. Dictated by: Jaylen Cook MD 06/30/2020 10:04 Jaylen Cook MD in [place] 06/30/2020 10:04
== END ==
PROVIDERS: PCP Nurse Practitioner Family; Visit Provider Obstetrics & Gynecology
DX: O26.841 Uterine size-date discrepancy, first trimester (principal); O26.859 Spotting complicating pregnancy, unspecified trimester
CPT/HCPCS: 76801

== ENCOUNTER 2020-12-22 17:31 | Emergency (ER) | payer OTHER, SELFPAY ==
[2020-12-22 17:58] VITALS: BP 00/00; PULSE 0; RESP 0; TEMP -17.7; TEMP 0
== END 2020-12-22 18:03 | disposition left against medical advice (07) ==
PROVIDERS: Emergency Provider Nurse Practitioner; PCP Emergency Medicine
DX: Z53.21 Procedure and treatment not carried out due to patient leaving prior to being seen by health care provider (principal)

== ENCOUNTER → 2021-03-18 13:23 | Outpatient (CLI) | payer OTHER, SELFPAY ==
[2021-03-18 14:47] LABS: Amphetamine/Metha Screen,Urine Negative ng/ml (<1000)
[2021-03-18 14:48] LABS: Barbiturates Screen,Urine Negative ng/ml (<200); Benzodiazepines Screen,Urine Negative ng/ml (<200)
[2021-03-18 14:49] LABS: Cannabinoid Screen,Urine Negative ng/ml (<50)
[2021-03-18 14:50] LABS: Cocaine Screen,Urine Negative ng/ml (<300); Methadone Screen,Urine Negative ng/ml (<300)
[2021-03-18 14:51] LABS: Opiate Screen,Urine Negative ng/ml (<300); Phencyclidine Screen,Urine Negative ng/ml (<25)
== END ==
PROVIDERS: Visit Provider Physician Assistant
DX: F41.9 Anxiety disorder, unspecified (principal)
CPT/HCPCS: 80305

== ENCOUNTER 2021-08-31 15:34 | Emergency (ER) | payer OTHER, SELFPAY ==
[2021-08-31 16:40] VITALS: BP 141/91; PULSE 91; RESP 19; TEMP 36.9; O2SAT 98; BMI 27.8
--- NOTE | 2021-08-31 16:50 | HMH.EDUTC ---
[facility] [place] Clinical Impression: Viral syndrome Pharyngitis Qualifiers: Pharyngitis/tonsillitis etiology: unspecified etiology Qualified Code(s): J02.9 - Acute pharyngitis, unspecified Disposition: Home, Self-Care Condition on Discharge: Good Instructions: DI for Sinusitis Additional Instructions: Drink plenty of fluids. Take tylenol or ibuprofen for pain or fever. Take the medications as directed. Follow up with your regular doctor. GO TO THE ER FOR ANY WORSENING SYMPTOMS Don't start the oral steroids until tomorrow, since you had the shot here today. The cough medication (promethazine dm) will make you drowsy, so don't drive or operate heavy machinery after taking it. Prescriptions: Promethazine/Dextromethorphan [Promethazine-Dm Syrup] 5 ml PO Q6HP PRN #240 ml PRN Reason: Cough Transmission Status: Received by [id number] Ondansetron [Zofran 4mg ODT] 4 mg PO Q8HP PRN #20 tab PRN Reason: Nausea Transmission Status: Received by [id number] methylPREDNISolone [Medrol] 4 mg PO DIRECTED 6 Days #21 packet Transmission Status: Received by [id number] Azithromycin [Z-Salo 250mg Tab*] 250 mg PO UD DOSE PK #6 tab Transmission Status: Received by [id number] Referrals: Chai Hurst MD [Primary Care Provider] - Forms: Work/School Release Time of Disposition: 16:55 Medical Decision Making - Medical Records Medical records reviewed: No: I reviewed the patient's medical records. - Shayne Inquiry Pt receiving controlled substance: No Vital Signs: 08/31/21 16:40 08/31/21 17:37 Temperature 98.4 F 98.4 F Temperature Source Oral Pulse Rate 91 H Pulse Rate [Right Brachial] 91 H Respiratory Rate 19 19 Blood Pressure 141/91 H Blood Pressure [Right Arm] 141/91 H Blood Pressure Mean [Right Arm] 107 Blood Pressure Source [Right Arm] Automatic Cuff Blood Pressure Position [Right Arm] Sitting 02 Sat by Pulse Oximetry 98 Oxygen Delivery Method Room Air - Lab Data Lab results reviewed: Yes: I reviewed the patient's lab results. Lab Results 08/31/21 16:49: Influenza Type A Ag Negative, Influenza Type B Ag Negative 08/31/21 16:50: Group A Strep Rapid Negative 08/31/21 17:38: Chlamy pneumoniae PCR Not detected, Adenovirus (PCR) Not detected, B. pertussis DNA (PCR) Not detected, Coronavirus OC43 (PCR) Not detected, Coronavirus HKU1 (PCR) Not detected, Coronavirus 229E (PCR) Not detected, SARS-CoV-2 (PCR) Not detected, Coronavirus NL63 (PCR) Not detected, Human Metapneumovir PCR Not detected, Influenza A (H1) PCR Not detected, Influ A (H1N1/09) PCR Not detected, Influenza A (H3) PCR Not detected, Influenza Type A (PCR) Not detected, Influenza Type B (PCR) Not detected, M. pneumoniae (PCR) Not detected, Parainfluenza 1 (PCR) Not detected, Parainfluenza 2 (PCR) Not detected, Parainfluenza 3 (PCR) Not detected, Parainfluenza 4 (PCR) Not detected, RSV (PCR) Not detected, Entero/Rhino (PCR) Not detected [facility] [place] HPI - General Stated complaint: sore throat,weakness Time Seen by Provider: 08/31/21 16:51 - History of Present Illness Provider Complaint: She states that for the past 3 days she has had chest congsetion, sore throat, chills, low grade fever. - Related Data Previous Rx's Medication Instructions Recorded Azithromycin [Z-Salo 250mg Tab*] 250 mg PO UD DOSE PK #6 tab 08/31/21 Ondansetron [Zofran 4mg ODT] 4 mg PO Q8HP PRN #20 tab 08/31/21 Promethazine/Dextromethorphan 5 ml PO Q6HP PRN #240 ml 08/31/21 [Promethazine-Dm Syrup] methylPREDNISolone [Medrol] 4 mg PO DIRECTED 6 Days #21 08/31/21 packet Allergies Allergy/AdvReac Type Severity Reaction Status Date / Time gabapentin Allergy Mild unable to Verified 03/18/21 10:53 walk amoxicillin Allergy Unknown Verified 03/18/21 10:53 [facility] History - Hepatitis A Screen Attestation statement:: This patient has been screened for Hepatitis A risk factor
[2021-08-31 17:07] LABS: Strep Scrn Group A (Rapid) Negative (Negative)
[2021-08-31 17:09] LABS: UTC Influenza A Antigen Negative (Negative); UTC Influenza B Antigen Negative (Negative)
[2021-08-31 17:37] VITALS: BP 141/91; PULSE 91; RESP 19; TEMP 36.9; O2SAT 98
[2021-08-31 17:46] LABS: Adenovirus,PCR Not Detected (NotDetected); Bordetella Pertussis Not Detected (NotDetected); Chlamydophila Pneumoniae, PCR Not Detected (NotDetected); Coronavirus 19, PCR Not Detected (NotDetected); Coronavirus 229E Not Detected (NotDetected); Coronavirus NL63 Not Detected (NotDetected); Coronavirus OC43 Not Detected (NotDetected); Coronovirus HKU1,PCR Not Detected (NotDetected); Human Metapneumovirus Not Detected (NotDetected); Influenza A, PCR Not Detected (NotDetected); Influenza AH1, 2009 Not Detected (NotDetected); Influenza AH1, PCR Not Detected (NotDetected); Influenza AH3,PCR Not Detected (NotDetected); Influenza B, PCR Not Detected (NotDetected); Mycoplasma Pneumoniae, PCR Not Detected (NotDetected); Parainfluenza 1, PCR Not Detected (NotDetected); Parainfluenza 2, PCR Not Detected (NotDetected); Parainfluenza 3, PCR Not Detected (NotDetected); Parainfluenza 4, PCR Not Detected (NotDetected); Respiratory Syncytial Virus Not Detected (NotDetected); Rhinovirus/Enterovirus Not Detected (NotDetected)
== END 2021-08-31 17:41 | disposition home or self-care (01) ==
PROVIDERS: Emergency Provider Nurse Practitioner Family; PCP Emergency Medicine
DX: J02.9 Acute pharyngitis, unspecified (principal); B34.9 Viral infection, unspecified; I10 Essential (primary) hypertension; E78.5 Hyperlipidemia, unspecified; F17.210 Nicotine dependence, cigarettes, uncomplicated
CPT/HCPCS: 87430; 87581; 87632; 87798; 87804; 99213; C9803; G0463; U0003; U0005

== ENCOUNTER 2021-11-25 18:13 | Emergency (ER) | payer OTHER, SELFPAY ==
[2021-11-25 18:15] VITALS: BP 112/75; PULSE 110; RESP 19; TEMP 37.2; O2SAT 98; BMI 24.3
[2021-11-25 18:36] VITALS: BP 117/73; PULSE 95; O2SAT 100
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
--- NOTE | 2021-11-25 19:15 | PC.NURSE ---
wound cleaned and dressing applied. verbal instructions on how to do home dressing changes given to pt.
[2021-11-25 20:00] VITALS: BP 130/78; PULSE 85; RESP 18; TEMP 36.8; O2SAT 98
== END 2021-11-25 20:05 | disposition home or self-care (01) ==
PROVIDERS: Emergency Provider Emergency Medicine; PCP Emergency Medicine
DX: T24.002A Burn of unspecified degree of unspecified site of left lower limb, except ankle and foot, initial encounter (principal); X08.8XXA Exposure to other specified smoke, fire and flames, initial encounter
CPT/HCPCS: 90471; 90715; 99283

== ENCOUNTER 2021-12-01 13:02 | Emergency (ER) | payer OTHER, SELFPAY ==
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
[2021-12-01 13:45] VITALS: BP 116/81; PULSE 92; RESP 16; TEMP 37.1; O2SAT 98; BMI 25.0
[2021-12-01 14:25] VITALS: BP 116/81; PULSE 92; RESP 16; TEMP 37.1
== END 2021-12-01 14:32 | disposition home or self-care (01) ==
PROVIDERS: Emergency Provider Nurse Practitioner Family; PCP Emergency Medicine
DX: B34.9 Viral infection, unspecified (principal); Z20.822 Contact with and (suspected) exposure to COVID-19
CPT/HCPCS: 99212; C9803; G0463; U0003; U0005

== ENCOUNTER 2021-12-14 09:52 | Emergency (ER) | payer OTHER, SELFPAY ==
[2021-12-14 10:00] VITALS: BP 104/64; PULSE 100; RESP 20; TEMP 36.9; O2SAT 95; BMI 25.0
--- NOTE | 2021-12-14 10:17 | HMH.EDUTC ---
[facility] [place] Clinical Impression: Nausea vomiting and diarrhea Disposition: Home, Self-Care Condition on Discharge: Good Instructions: Diarrhea, DI for Acute Abdominal Pain, Nausea and Vomiting-Adult Additional Instructions: *Monitor Temp, Over the counter Motrin or Tylenol as directed/as needed Tylenol every 4 hours and Motrin every 6 hours (as long as your family doctor has told you that you can take it) for fever or pain. and straight to ER if unable to lower temp less than 101.0 after medication given *Warm salt water gargles may help to soothe the throat *Throat Lozenges *Warm fluids like tea with honey may help to soothe the throat *Sleep elevated *Humidifier/Vaporizer Drink extra fluids with and between meals. If you have difficulty drinking, try very small amounts of water or suck on ice chips. ? Avoid fruit juices, as these do not replace minerals and can actually increase diarrhea. ? Children and adults can use sports drinks to replenish electrolytes. Younger children and infants should use products formulated for children, like oral rehydration solutions. ? Eat food in small amounts and let your stomach recover. ? Get lots of rest. You may feel tired or weak. ? No greasy or fried foods for the next 24-48 hours BRAT diet Bananas Rice Apples and Welcome ? Make sure to drink plenty of liquids ? Return if needed ? Straight to ER if any life threatening symptoms ? Zofran as prescribed ? You was given an outpatient order for diarrhea panel, please collect specimen and bring back to outpatient lab then call back to the [facility] or follow up with family doctor for results ? Follow up with family doctor in the next 48-72 hours if no improvement or any worsening of symptoms Follow up IMMEDIATELY for new or worsening symptoms or no Noticeable improvement over the next 48-72 hours. 911 for difficulty breathing or swallowing You were tested for today for COVID19 your test result should be back in the next 24-48 hours, you may check your results on the [facility] My Health Portal Make sure to take your Vitamins Vit. C Vit D and Zinc if you can take them Prescriptions: Dicyclomine HCl [Bentyl 10mg capsule] 10 mg PO TID PRN #15 cap PRN Reason: Cramping Transmission Status: Received by [id number] Ondansetron [Zofran 4mg ODT] 4 mg PO TIDP PRN #10 tab PRN Reason: Nausea Transmission Status: Received by [id number] Referrals: Chai Hurst MD [Primary Care Provider] - As needed Forms: Work/School Release Medical Decision Making - Shayne Inquiry Pt receiving controlled substance: No Shayne was queried for this patient: No Vital Signs: 12/14/21 10:00 12/14/21 11:44 Temperature 98.4 F 98.4 F Temperature Source Oral Pulse Rate 100 H Pulse Rate [Right Brachial] 100 H Respiratory Rate 20 20 Blood Pressure 104/64 L Blood Pressure [Right Arm] 104/64 L Blood Pressure Mean [Right Arm] 77 Blood Pressure Source [Right Arm] Automatic Cuff Blood Pressure Position [Right Arm] Sitting 02 Sat by Pulse Oximetry 95 Oxygen Delivery Method Room Air - Lab Data Lab Results 12/14/21 10:09: Strep Scn Rapid Clinic Negative 12/14/21 10:36: Tst Clinic Negative Orders (Tests/Meds): ED MEDICATIONS Generic Name Dose Route Start Last Admin Trade Name Freq PRN Reason Stop Dose Admin Sodium Chloride 1,000 mls @ 999 mls/hr 12/14/21 10:30 12/14/21 10:43 Sod Chlor 0.9% 1000ml Bag IV 12/14/21 11:30 999 mls/hr .Q1H1M RENEE Administration Discontinued Medications Generic Name Dose Route Start Last Admin Trade Name Freq PRN Reason Stop Dose Admin Dicyclomine HCl 10 mg 12/14/21 10:28 12/14/21 10:43 Dicyclomine 10mg Capsule PO 12/14/21 10:29 10 mg ONCE ONE Administration Ondansetron HCl 4 mg 12/14/21 10:28 12/14/21 10:51 Ondansetron 4mg/2ml Vial IM 12/14/21 10:29 4 mg ONCE ONE Administration ORDERS Category Date Time Status Covid-19 Nasal PCR ([facility]) Ro
[2021-12-14 10:23] LABS: UTC Strep Screen (Rapid) Negative (Negative)
[2021-12-14 10:37] LABS: UTC Pregnancy Test, Urine Negative (Negative)
[2021-12-14 11:44] VITALS: BP 104/64; PULSE 100; RESP 20; TEMP 36.9; O2SAT 95
== END 2021-12-14 11:50 | disposition home or self-care (01) ==
PROVIDERS: Emergency Provider Nurse Practitioner; PCP Emergency Medicine
DX: R11.2 Nausea with vomiting, unspecified (principal); R19.7 Diarrhea, unspecified
CPT/HCPCS: 81025; 87880; 96365; 96375; 99213; C9803; G0463; J2405; U0003; U0005

== ENCOUNTER 2021-12-27 17:56 | Emergency (ER) | payer OTHER, SELFPAY ==
[2021-12-27 17:57] VITALS: BP 126/78; PULSE 108; RESP 16; TEMP 36.8; O2SAT 98; BMI 25.0
--- NOTE | 2021-12-27 18:49 | PC.NURSE ---
visual acuity rt 20/30 -1 without correction, lt 20/25 -1 with correction
--- NOTE | 2021-12-27 20:44 | HMH.EDGENADL ---
ED Disposition Clinical Impression: Ocular pain, right eye Disposition: Home, Self-Care Condition on Discharge: Good Additional Instructions: Follow-up with ophthalmology walk-in clinic at the [facility] please call [phone] first thing tomorrow morning and tell them that Dr. Mullen with ophthalmology wanted you evaluated immediately for potential bacterial keratitis. Return to the emergency department with any new or worsening symptoms including worsening eye pain, discharge, fevers, vision changes or any other new or concerning symptoms. Referrals: Chai Hurst MD [Primary Care Provider] - 12/28/21 8:00 am ([facility] ophthalmology walk-in clinic with Dr. Mullen. Call [phone]) - Critical Care Critical Care Time: No Attestation: On 12/27/21, the high probability of a clinically significant, sudden or life threatening deterioration of the following system(s) required my full and direct attention, intervention and personal management. The time I documented below is in addition to time spent performing reported procedures but includes the following listed in this critical care notation. Medical Decision Making - Shayne Inquiry Pt receiving controlled substance: No Vital Signs: 12/27/21 17:57 Temperature 98.3 F Temperature Source Oral Pulse Rate [Radial] 108 H Respiratory Rate 16 Blood Pressure [Right Arm] 126/78 Blood Pressure Mean [Right Arm] 94 Blood Pressure Position [Right Arm] Sitting 02 Sat by Pulse Oximetry 98 Oxygen Delivery Method Room Air Medical Decision Narrative: 41-year-old female presents emergency department with concern for retained foreign body in the right eye, with patient found to have been wearing contact for 1 week with patient having photophobia and conjunctival injection. No evidence of corneal foreign body, no hypopyon, some photophobia, no purulent discharge, patient states that her vision is grossly the same as usual. Dr. Mullen at the [facility] was consulted due to concern for potential bacterial keratitis, and stated to have patient discontinue contact use and follow-up first thing in the morning with their clinic. Patient was given number and instructions for walk-in ophthalmology clinic at the [facility]. Ophthalmology at [facility] recommended no antibiotics or topicals at this time, so the cultures and adequate exam could be performed there. Patient was discharged from the emergency department with return precautions and instructions to follow-up with ophthalmology. General Adult HPI - General Chief complaint: Eye Problems Stated complaint: FB in r EYE Time Seen by Provider: 12/27/21 20:00 Mode of Arrival: Ambulatory Limitations: No Limitations Description of Symptoms (Recalled from ER Triage Doc. by RN): to ed per pvt car with c/o rt eye pain, redness, tearing, FB sensation x 1 week. - History of Present Illness HPI narrative: 41-year-old female presents emergency department stating that a week ago while working at [employer] she rubbed her eye and thinks that she got a metal shaving in her right eye. Patient states that she did not notice it at the time but states that later in the day on Tuesday, approximately 7 days ago she had a foreign body sensation that grew worse over the next several days, with patient stating that she thought she was getting better but states that 2 days ago she began to have worsening pain with photophobia. Patient denies purulent ocular discharge but does deny tearing. Patient denies fever vomiting diarrhea, and states that she has past medical history of bipolar type II surgical history of appendectomy, denies allergies to medications, endorses smoking history denies alcohol or recreational drug use. - Related Data Previous Rx's Medication Instructions Recorded Azithromycin [Z-Salo 250mg Tab*] 250 mg PO UD DOSE PK #6 tab 08/31/21 Ondansetron [Zofran 4mg ODT] 4 mg
[2021-12-27 21:11] VITALS: BP 125/75; PULSE 78; RESP 18; TEMP 36.8; O2SAT 99
== END 2021-12-27 21:15 | disposition home or self-care (01) ==
PROVIDERS: Emergency Provider Student in an Organized Health Care Education/Training Program; PCP Emergency Medicine
DX: H57.11 Ocular pain, right eye (principal); H53.9 Unspecified visual disturbance
CPT/HCPCS: 99283

== ENCOUNTER 2022-06-28 13:59 | Outpatient (CLI) | payer OTHER, SELFPAY ==
[2022-06-28 17:08] VITALS: BMI 18.4
[2022-06-28 22:12] LABS: Adenovirus F 40/41, stool Not Detected (NotDetected); Astrovirus Not Detected (NotDetected); Campylobacter Not Detected (NotDetected); Clostridium Difficile A/B, PCR Not Detected (NotDetected); Cryptosporidium Not Detected (NotDetected); Cyclospora Cayetanesis Not Detected (NotDetected); Entamoeba histolytica Not Detected (NotDetected); Enteroaggregative E coli Not Detected (NotDetected); Enteropathogenic E coli Not Detected (NotDetected); Enterotoxigenic E coli Not Detected (NotDetected); Giardia lamblia Not Detected (NotDetected); Norovirus Not Detected (NotDetected); Plesimonas Shigalloides, PCR Not Detected (NotDetected); Rotavirus A Not Detected (NotDetected); Salmonella, PCR Not Detected (NotDetected); Sapovirus Not Detected (NotDetected); Shiga-like toxin E coli Not Detected (NotDetected); Shigella Enterovasive E coli Not Detected (NotDetected); Vibrio Cholerae Not Detected (NotDetected); Vibrio, PCR Not Detected (NotDetected); Yersinia Entercolitica, PCR Not Detected (NotDetected)
== END 2022-06-28 15:00 | disposition home or self-care (01) ==
LOC: UTC.OUT 14:01
PROVIDERS: Visit Provider Nurse Practitioner Family
DX: R19.7 Diarrhea, unspecified (principal)
CPT/HCPCS: 87506; 87507

== ENCOUNTER → 2022-09-17 16:24 | Outpatient (CLI) | payer OTHER, SELFPAY ==
[2022-09-17 17:19] LABS: Basophils % 0.5 % (0.1-2.0); Eosinophils # 0.1 K/mm3 (0.0-0.4); Eosinophils % 1.2 % (0.1-12.0); Hematocrit 41.7 % (37.0-47.0); Hemoglobin 13.2 g/dL (12.2-16.2); Lymphocytes % 29.5 % (10-50); Mean Corpuscular HGB Conc 31.6 g/dL (31.8-35.4); Mean Corpuscular Hemoglobin 29.8 pg (27.0-31.2); Mean Corpuscular Volume 94.4 fl (81-99); Mean Platelet Volume 7.6 fl (7.4-10.4); Monocytes # 0.3 K/mm3 (0.1-1.0); Monocytes % 3.9 % (1.7-9.3); Neutrophils # 4.4 K/mm3 (1.8-7.8); Neutrophils % 64.9 % (37.0-80.0); Platelet Count 297 K/mm3 (142-424); Red Blood Count 4.42 M/mm3 (4.20-5.40); Red Cell Distribution Width 12.8 % (11.5-17.5); White Blood Count 6.8 K/mm3 (4.8-10.8)
[2022-09-17 17:39] LABS: Hemoglobin A1C 5.4 % (4.0-6.0)
[2022-09-17 17:46] LABS: Alanine Aminotransferase 18 U/L (12-78); Albumin/Globulin Ratio 1.7 (1.1-1.8); Alkaline Phosphatase 83 U/L (38-126); Anion Gap 10.1 mEq/L (5-15); Aspartate Amino Transferase 23 U/L (14-36); Bilirubin,Total 0.3 mg/dl (0.2-1.3); Blood Urea Nitrogen 9 mg/dl (7-17); Calcium 8.7 mg/dl (8.4-10.2); Carbon Dioxide 29 mmol/L (22.0-30.0); Chloride 103 mmol/L (98-107); Cholesterol 191 mg/dl (140-200); Estimated Glomerular Filt Rate 110 ml/min (>60); GFR (African American) 133 ML/MIN (>60); Globulin 2.3 g/dL (1.3-3.2); Glucose 103 mg/dl (74-100); HDL Cholesterol 48 mg/dl (40-60); Potassium 4.1 mmoL/L (3.5-5.1); Sodium 138 mmol/L (136-145); Total Protein,Serum 6.3 g/dl (6.3-8.2)
[2022-09-17 17:54] LABS: Triglycerides 435 mg/dl (30-150)
[2022-09-17 17:57] LABS: Direct LDL Cholesterol 93.98 mg/dL (100-129)
[2022-09-17 18:03] LABS: 25-OH Vitamin D, Total 25.8 ng/mL (30-100)
[2022-09-17 18:16] LABS: Thyroid Stimulating Hormone 1.34 uIU/mL (0.465-4.68)
[2022-09-17 18:36] LABS: Vitamin B12 683 pg/mL (239-931)
[2022-09-30 10:08] LABS: 1,25 Dihydroxy Vitamin D 83 pg/mL (.); 1,25-Dihydroxy, Vitamin D-2 <10 pg/mL (.); 1,25-Dihydroxy, Vitamin D-3 75 pg/mL (.)
== END ==
PROVIDERS: Nurse Practitioner Psychiatric/Mental Health; PCP Emergency Medicine
DX: F31.10 Bipolar disorder, current episode manic without psychotic features, unspecified (principal); F43.10 Post-traumatic stress disorder, unspecified; E55.9 Vitamin D deficiency, unspecified; Z79.899 Other long term (current) drug therapy
CPT/HCPCS: 36415; 80053; 80061; 82306; 82607; 82652; 83036; 84443; 85025

== ENCOUNTER 2023-10-03 18:41 | Emergency (ER) | payer SELFPAY ==
[2023-10-03 18:43] VITALS: BP 139/98; PULSE 90; RESP 16; TEMP 36.7; O2SAT 98; BMI 25.8
--- NOTE | 2023-10-03 18:47 | ED_ITS ---
Discharge Plan Disposition Patient Disposition: Home, Self-Care Condition: Good Prescriptions Prescriptions: New doxycycline hyclate 100 mg capsule 100 mg PO BID 10 Days Qty: 20 0RF No Action promethazine-DM 120 ML syrup 5 ml PO Q6HP PRN (Reason: Cough) Qty: 240 0RF azithromycin 250 MG tablet 250 mg PO UD DOSE PK Qty: 6 0RF Rx Instructions: Take two (2) tablets today, then one (1) tablet days #2 thru #5 ondansetron 4 MG tablet,disintegrating 4 mg PO Q8HP PRN (Reason: Nausea) Qty: 20 0RF methylprednisolone 4 MG tablets,dose pack 4 mg PO DIRECTED 6 Days Qty: 21 0RF sulfamethoxazole-trimethoprim 1 EACH tablet 1 each PO BID Qty: 20 0RF mupirocin 22 GM ointment 1 applicatio TP DAILY Qty: 22 0RF cephalexin 500 MG capsule 500 mg PO Q6H Qty: 28 0RF triamcinolone acetonide 15 GM cream 1 applicatio TP TIDP PRN (Reason: Itching) 7 Days Qty: 1 0RF Rx Instructions: 0.025% methylprednisolone 4 MG tablets,dose pack 4 mg PO DIRECTED 6 Days Qty: 21 0RF ondansetron 4 MG tablet,disintegrating 4 mg PO TIDP PRN (Reason: Nausea) Qty: 10 0RF dicyclomine 10 MG capsule 10 mg PO TID PRN (Reason: Cramping) Qty: 15 0RF Referrals Follow up/Referrals: Provider,Referral, MD [Primary Care Provider] - See instructions Activity Restrictions/Add. Instructions Additional Instructions/Restrictions: Follow-up with PCP as needed. Return For any worsening signs including fever pain nausea vomiting etc. Clinical Impressions Clinical Impression: Tick bite with subsequent removal of tick Instructions Patient Instructions: DI for Skin Abscess Discharge ED Provider: Cristobal Quach General Adult HPI <GWEN Roberts - Last Filed: 10/03/23 21:23> General Chief complaint: Skin/Abscess/Foreign Body Stated complaint: possible tick bite under left arm Time Seen by Provider: 10/03/23 18:47 History of Present Illness HPI narrative: Patient presents for evaluation of a tick. Patient has been camping for a week and noticed today that she had a tick in the left posterior aspect of her proximal upper extremity. She denies any fever pain nausea vomiting. Related Data Previous Rx's Medication Instructions Recorded azithromycin 250 mg tablet 250 mg PO UD DOSE PK #6 tabs 08/31/21 methylprednisolone 4 mg tablets in 4 mg PO DIRECTED 6 days #21 08/31/21 a dose pack packets ondansetron 4 mg disintegrating 4 mg PO Q8HP PRN Nausea #20 tabs 08/31/21 tablet promethazine-DM 6.25 mg-15 mg/5 mL 5 ml PO Q6HP PRN Cough #240 mL 08/31/21 oral syrup cephalexin 500 mg capsule 500 mg PO Q6H #28 caps 11/25/21 mupirocin 2 % topical ointment 1 applicatio topical DAILY #22 11/25/21 grams sulfamethoxazole 800 1 each PO BID #20 tabs 11/25/21 mg-trimethoprim 160 mg tablet methylprednisolone 4 mg tablets in 4 mg PO DIRECTED 6 days #21 12/01/21 a dose pack packets triamcinolone acetonide 0.025 % 1 applicatio topical TIDP PRN 12/01/21 topical cream Itching 7 days ##1 dicyclomine 10 mg capsule 10 mg PO TID PRN Cramping #15 caps 12/14/21 ondansetron 4 mg disintegrating 4 mg PO TIDP PRN Nausea #10 tabs 12/14/21 tablet doxycycline hyclate 100 mg capsule 100 mg PO BID 10 days #20 caps 10/03/23 Allergies Allergy/AdvReac Type Severity Reaction Status Date / Time gabapentin Allergy Mild unable to Verified 06/28/22 17:08 walk amoxicillin Allergy Unknown Verified 06/28/22 17:08 [facility] <GWEN Roberts - Last Filed: 10/03/23 21:23> [facility] Disclaimer: The information contained in this section may have been updated after the patient was seen, as this information can be updated by other users. Medical History (Updated 10/03/23 @ 21:09 by GWEN Roberts) Anxiety Social History Smoking Status: Current every day smoker tobacco type: cigarettes packs per day: 1 alcohol intake: never counseling provided: none substance use type: marijuana current occupational status: other Travel in the last 8 weeks: None household members: children housing: house number of children: 1 <GWEN Roberts - Last Filed: 10/03/23 21:23> ROS Obtained: Yes Systems reviewed as appropriate & no additional complaints except as documented Physical Exam <GWEN Roberts - Last Filed: 10/03/23 21:23> General General appearance: alert and in no apparent distress Head Head exam: atraumatic and normal inspection Neck Neck exam: Present normal inspection Chest Chest inspection: Present normal inspection Respiratory Respiratory exam: Present normal lung sounds bilaterally Cardiovascular Cardiovascular exam: Present regular rate and normal rhythm Extremities Exam Extremities exam: Present normal inspection Back Exam Back exam: Present normal inspection Neurological Exam Neurological exam: Present alert and oriented X3 Skin Skin exam: Present warm, dry and normal color Lymphatic Lymphatic Findings: no adenopathy Other Other exam information: We did a full body survey with [employer] and found only the 1 known tick in the proximal left upper extremity the posterior aspect of her humerus. Tick is very small but the head is embedded. No evidence of target lesions no other evidence of rash across entire body. I did search her scalp as well. Medical Decision Making <GWEN Roberts - Last Filed: 10/03/23 21:23> Medical Records Medical records reviewed: Yes I reviewed the patient's medical records. Shayne Inquiry Pt receiving controlled substance: No Vital Signs: 10/03/23 18:43 10/03/23 19:00 10/03/23 19:30 Temperature 98.0 F Temperature Source Oral Pulse Rate 95 H 95 H Pulse Rate [Radial] 90 Respiratory Rate 16 Blood Pressure 143/101 H 150/94 H Blood Pressure [Right Arm] 139/98 H Blood Pressure Mean 111 112 Blood Pressure Mean [Right Arm] 111 Blood Pressure Source Blood Pressure Source [Right Arm] Automatic Cuff Blood Pressure Position Blood Pressure Position [Right Arm] Sitting 02 Sat by Pulse Oximetry 98 100 100 Oxygen Delivery Method Room Air Room Air Room Air 10/03/23 20:00 10/03/23 21:26 Temperature 98.0 F Temperature Source Oral Pulse Rate 96 H 90 Pulse Rate [Radial] Respiratory Rate 18 Blood Pressure 133/100 H 150/94 H Blood Pressure [Right Arm] Blood Pressure Mean 106 Blood Pressure Mean [Right Arm] Blood Pressure Source Automatic Cuff Blood Pressure Source [Right Arm] Blood Pressure Position Sitting Blood Pressure Position [Right Arm] 02 Sat by Pulse Oximetry 100 Oxygen Delivery Method Room Air Room Air Lab Data Lab results reviewed: Yes I reviewed the patient's lab results. Orders (Tests/Meds): ED MEDICATIONS Discontinued Medications Generic Name Dose Route Start Last Admin Trade Name Freq PRN Reason Stop Dose Admin Doxycycline Hyclate 100 mg 10/03/23 21:15 10/03/23 21:19 Doxycycline Hycl 100 Mg Tablet PO 10/13/23 21:14 100 mg Q12H RENEE Administration Lidocaine HCl 15 ml 10/03/23 20:02 10/03/23 20:11 Lidocaine 2% Viscous Kimber 15ml Udc PO 10/03/23 20:03 15 ml ONCE ONE Administration Medical Decision Narrative: In summary patient is a 43-year-old female who presents to the emergency department for evaluation of attached tick. Patient is hemodynamically upon arrival, afebrile. Only for tick in the posterior aspect of the proximal left upper extremity. Differential diagnosis includes tick versus tickborne illness. I have utilize viscous lidocaine to kill tick and then I have removed the tick with forceps and sent the tick to the lab for identification. Patient put on doxycycline. Patient to follow-up with PCP. <Cristobal Quach, DO - Last Filed: 10/03/23 23:39> Vital Signs: 10/03/23 18:43 10/03/23 19:00 10/03/23 19:30 Temperature 98.0 F Temperature Source Oral Pulse Rate 95 H 95 H Pulse Rate [Radial] 90 Respiratory Rate 16 Blood Pressure 143/101 H 150/94 H Blood Pressure [Right Arm] 139/98 H Blood Pressure Mean 111 112 Blood Pressure Mean [Right Arm] 111 Blood Pressure Source Blood Pressure Source [Right Arm] Automatic Cuff Blood Pressure Position Blood Pressure Position [Right Arm] Sitting 02 Sat by Pulse Oximetry 98 100 100 Oxygen Delivery Method Room Air Room Air Room Air 10/03/23 20:00 10/03/23 21:26 Temperature 98.0 F Temperature Source Oral Pulse Rate 96 H 90 Pulse Rate [Radial] Respiratory Rate 18 Blood Pressure 133/100 H 150/94 H Blood Pressure [Right Arm] Blood Pressure Mean 106 Blood Pressure Mean [Right Arm] Blood Pressure Source Automatic Cuff Blood Pressure Source [Right Arm] Blood Pressure Position Sitting Blood Pressure Position [Right Arm] 02 Sat by Pulse Oximetry 100 Oxygen Delivery Method Room Air Room Air Orders (Tests/Meds): ED MEDICATIONS Discontinued Medications Generic Name Dose Route Start Last Admin Trade Name Freq PRN Reason Stop Dose Admin Doxycycline Hyclate 100 mg 10/03/23 21:15 10/03/23 21:19 Doxycycline Hycl 100 Mg Tablet PO 10/13/23 21:14 100 mg Q12H RENEE Administration Lidocaine HCl 15 ml 10/03/23 20:02 10/03/23 20:11 Lidocaine 2% Viscous Kimber 15ml Udc PO 10/03/23 20:03 15 ml ONCE ONE Administration Medical Decision Narrative: In summary patient is a 43-year-old female who presents to the emergency department for evaluation of attached tick. Patient is hemodynamically upon arrival, afebrile. Only for tick in the posterior aspect of the proximal left upper extremity. Differential diagnosis includes tick versus tickborne illness. I have utilize viscous lidocaine to kill tick and then I have removed the tick with forceps and sent the tick to the lab for identification. Patient put on doxycycline. Patient to follow-up with PCP. I was consulted by the SOUMYA, and we discussed the complexity of the problems being addressed. I approved the treatment and management plan for this patient's care in the Emergency Department, thus performing a substantive portion of the medical decision making. Cristobal Quach, DO Critical Care <GWEN Roberts - Last Filed: 10/03/23 21:23> Critical Care Time Critical Care Time: No
[2023-10-03 19:00] VITALS: BP 143/101; PULSE 95; O2SAT 100
[2023-10-03 19:30] VITALS: BP 150/94; PULSE 95; O2SAT 100
[2023-10-03 20:00] VITALS: BP 133/100; PULSE 96; O2SAT 100
[2023-10-03] MEDS: LIDOCAINE 2% VISCOUS SOL 15ML UDC 15 ML PO (20:11)
[2023-10-03] MEDS: DOXYCYCLINE HYCL 100 MG TABLET PO (21:19)
[2023-10-03 21:26] VITALS: BP 150/94; PULSE 90; RESP 18; TEMP 36.7; O2SAT 99
== END 2023-10-03 21:27 | disposition home or self-care (01) ==
PROVIDERS: Emergency Provider Emergency Medicine
DX: S40.862A Insect bite (nonvenomous) of left upper arm, initial encounter (principal); W57.XXXA Bitten or stung by nonvenomous insect and other nonvenomous arthropods, initial encounter
CPT/HCPCS: 10120; 99283